=== PATIENT | male | born 1985 | race African-American/Black ===

== ENCOUNTER 2022-04-08 15:36 | Emergency (ER) | payer BC, MEDICAID, OTHER ==
[2022-04-08] MEDS ORDERED: Bacitracin 1 PK ONE (16:01)
[2022-04-08] MEDS ORDERED: Boostrix 0.5 ML (Tdap) VIAL (>/=7 yrs of age) ONE (16:01)
== END 2022-04-08 16:16 | disposition home or self-care (01) ==
LOC: MADERS 15:36
DX: S80.212A Abrasion, left knee, initial encounter (principal); Z23 Encounter for immunization; V89.2XXA Person injured in unspecified motor-vehicle accident, traffic, initial encounter
CPT/HCPCS: 90471; 90715